=== PATIENT | female | born 1930 | race Caucasian/White ===

== ENCOUNTER 2016-07-10 05:21 | Inpatient (IN) | payer MEDICARE, OTHER ==
--- NOTE | ~2016-07-10 | IDS ---
Interim Discharge Summary [facility] [address] [place]. [address] NAME: BENJA ANDREW : 32 STATUS : ADM IN PAT#: [id number] AGE: 85 ADM/REG DATE : 07/10/16 MR#: [id number] REPORT SERV DATE: 07/15/16 DICTATED BY: SATYA CHOI DATE: 07/15/16 REPORT STATUS : Draft TRANSCRIBED BY: DARREN DATE: 07/15/16 ADMISSION DATE: 07/10/2016 DISCHARGE DATE: DATE OF INTERIM DISCHARGE: 07/15/2016. PROCEDURES DONE: 1. 07/10/2016, CT of the abdomen and pelvis without contrast: There was diffuse acute colitis present and bilateral pleural effusions. Mild cardiomegaly, benign left renal cyst. Prior hysterectomy. 2. 07/10/2016, 2D echo: Normal left ventricular size with jmkvekhd-sk-dsaexn left ventricular systolic dysfunction. There is a large area of hypokinesis involving the nzt-[id number] anterior, anteroseptal, apical, and distal inferior christensen. This pattern of left ventricular systolic dysfunction could be consistent with large anterior VA or perhaps likely stress cardiomyopathy. EF calculated at 35%. Moderate left ventricular diastolic dysfunction. Normal right ventricular size and systolic function. No significant valvular disease. CONSULTATIONS: 1. Marcos Mason M.D. for Cardiology. 2. GI. REASON FOR ADMISSION: Lower GI bleed x2 days. HISTORY OF PRESENT ILLNESS: An 85-year-old white female with past medical history of ST- elevation VA, CHF with AN EF of 25%, COPD, chronic low back pain, hypertension, hypothyroid, GERD, dementia/bipolar, and hypercholesterolemia, presenting with GI bleed x2 days. The patient was admitted for further evaluation of lower GI bleed. CT scan on 07/10/2016 shows the patient having colitis. More importantly, the patient had a recent ST-elevation VA at [place] and subsequently the patient had a left heart cath which showed stress-induced cardiomyopathy with an EF of 15%. At the time, Cardiology at [place] recommended medical management. Nonetheless, the patient was then sent here from rehab secondary to lower GI bleed from colitis. Her anticoagulation of Eliquis had to be stopped. The patient was kept n.p.o. for two days and subsequently the patient's H and H has gradually improved. The patient's current H and H is 11.3. The patient also unfortunately has chronic pain which requires 2 mg of Dilaudid q.6 hours. This medication had to be reduced in order for the patient's mentation to improve. Once the chronic pain medications have been reduced, the patient is able to interact more with both family and nursing staff. The family has been advised that the patient will need to participate with physical therapy in order to determine her rehab capabilities. DIAGNOSIS ON DISCHARGE: 1. Lower gastrointestinal bleed secondary to colitis. Continue the Zosyn for now. WBC trending down. Hopefully, we can get physical therapy with evaluation and treatment with possible case management consult for rehab placement. 2. Colitis. The patient is improving with Zosyn. Continue Zosyn for now pending PT eval Interim Discharge Summary [address] [address] NAME: BENJA ANDREW : 32 STATUS : ADM IN [facility]#: [id number] AGE: 85 ADM/REG DATE : 07/10/16 MR#: [id number] REPORT SERV DATE: 07/15/16 DICTATED BY: SATYA CHOI DATE: 07/15/16 REPORT STATUS : Draft TRANSCRIBED BY: DARREN DATE: 07/15/16 for rehab. 3. Coronary artery disease, status post ST-elevation VA on 07/03/2016. Cardiology was consulted regarding further management of the patient's coronary disease, status post ST-elevation VA. Cardiology recommend continued medical management. 4. CHF with diastolic dysfunction, EF of 35%. The patient had a 2D echo at the time of admission with an EF of 35%. This also reflected the result of the left heart cath that was done in [place], although the ejection fraction at the time of 15%. In the meantime, we will continue the patient's current cardiac medications at this time. 5. Atrial fibrillation. Currently, the patient's Eliquis was on hold due to problem #1. Since the patient is ready for discharge, recommend starting Eliquis. 6. Bipolar/dementia, currently stable. MJ/MADDYL Satya Choi MD / [id number] CC: Satya Choi MD
--- NOTE | ~2016-07-10 | PRECARD ---
[facility] [address] [place]. [address] NAME: ALLY RM : 32 STATUS : ADM IN [facility]#: [id number] AGE: 85 ADM/REG DATE : 07/10/16 MR#: [id number] REPORT SERV DATE: 07/10/16 DICTATED BY: DAVON MASON DATE: 07/10/16 REPORT STATUS : Draft TRANSCRIBED BY: DARREN DATE: 07/10/16 DATE OF ADMISSION: 07/10/2016 HISTORY OF PRESENT ILLNESS: Ms Ally Rm is an 85-year-old woman admitted for rectal bleeding, Cardiology is consulted because of a questionable myocardial infarction recently. Ms Rm is lethargic, unresponsive at this time. Her family reports she was at [facility] two weeks ago. She was admitted to [facility] with a diagnosis of acute myocardial infarction. The three daughters insist she had a heart catheterization that demonstrated normal coronary arteries and normal left ventricular function. They were told her heart was normal, they emphatically report. She was at [facility] for three to four days. Then she went to rehab. She developed hematochezia this morning, and was admitted through the emergency room. At this time, she is comfortable, lethargic. The records indicate she was on Eliquis and had chest discomfort. The family reports to me that she has no chest discomfort. Again, she has had some narcotics, she is comfortable now. The records indicate history of diabetes, hypertension, esophageal reflux, bipolar disorder, and COPD. PAST MEDICAL HISTORY: COPD, diabetes, hypertension, and esophageal reflux. MEDICATIONS: Tylenol, albuterol, Maalox, amiodarone IV, Eliquis previously, aspirin, Depakote, Colace, fluoxetine/Prozac, Flonase, Breo Ellipta, Lasix, Dilaudid, Synthroid, lisinopril, metoprolol, nystatin, Protonix, polyethylene glycol, potassium, Seroquel, and Zocor. FAMILY HISTORY: Noncontributory. REVIEW OF SYSTEMS: Difficult to obtain. PHYSICAL EXAMINATION: VITAL SIGNS: Blood pressure is 160/60, heart rate is about 70, and temperature is 98. GENERAL: Appears chronically ill, somnolent, arousable. In no discomfort. HEENT: No signs of xanthelasma. LUNGS: Clear. CARDIOVASCULAR: 2/6 murmur at the apex. ABDOMEN: No obvious masses or tenderness. EXTREMITIES: Mild edema. [facility] [address] [address] NAME: ALLY RM : 32 STATUS : ADM IN [facility]#: [id number] AGE: 85 ADM/REG DATE : 07/10/16 MR#: [id number] REPORT SERV DATE: 07/10/16 DICTATED BY: DAVON MASON DATE: 07/10/16 REPORT STATUS : Draft TRANSCRIBED BY: DARREN DATE: 07/10/16 DIAGNOSTIC DATA: EKG: Sinus rhythm, anterior infarct, anterior T-wave inversion. LABORATORY DATA: Hematocrit is 37.7, platelet count 370,000. BUN of 17 and creatinine 1.3. ASSESSMENT: Ms Rm is an 85-year-old woman admitted with hematochezia, hematocrit of 37.7. The family reports she was hospitalized at [facility] with diagnosis of myocardial infarction, the family insists, on repeated questioning, that heart catheterization demonstrated "no blockages." We have no old records, we do not have any cardiac biomarkers. She is hemodynamically stable. Her hematocrit is 37.7%. She is a do not resuscitate status now. The family states now they do not want cardiac catheterization to be considered. They do not want stress test, they only want minimal changes in her medical regimen. PLAN: 1. Biomarkers. 2. Obtain records from [facility]. 3. Echocardiogram to assess left ventricular function. BRET/DARREN Davon Mason M.D. / [id number] CC: Satya Solis MD
--- NOTE | ~2016-07-10 | HP ---
History And Physical [address] [address] NAME: BENJA ANDREW : 32 STATUS : ADM IN PAT#: [id number] AGE: 85 ADM/REG DATE : 07/10/16 MR#: [id number] REPORT SERV DATE: 07/10/16 DICTATED BY: SATYA SOLIS DATE: 07/10/16 REPORT STATUS : Draft TRANSCRIBED BY: MODAshley DATE: 07/10/16 DATE OF ADMISSION: 07/10/2016 REASON FOR ADMISSION: Lower GI bleed x2 days. HISTORY OF PRESENT ILLNESS: An 85-year-old white female with past medical history of ST- elevation [place], acute congestive heart failure with an EF of 25%, unknown dysfunction of either systolic or diastolic, COPD, chronic low back pain, hypertension, hypothyroid, GERD, dementia, hypercholesterolemia, presenting with GI bleed, questionable two days. The patient unfortunately cannot provide any decent medical history. History is obtained from [id number] and son at bedside. Apparently, the patient was initially admitted at [facility] and subsequently transferred to [facility]. During the time at [facility], the patient had two large bowel movements per family member, which was bright red blood in nature. Family stated that other than the lower GI bleed, family does not know if the patient has any other symptoms of fevers, chills, chest pain, shortness of breath, cough, or sputum. PAST MEDICAL HISTORY: As above. MEDICATIONS: 1. The patient takes Tylenol 650 q.4 hours p.r.n. 2. Albuterol one puff q.4 hours p.r.n. 3. Maalox 10 mL p.o. q.4 hours p.r.n. 4. Amiodarone 200 mg p.o. b.i.d. 5. Amiodarone 400 mg b.i.d. x7 days, start date 07/05/2016. 6. Eliquis 5 mg p.o. b.i.d. 7. Aspirin 81 mg p.o. daily. 8. Depakote 250 mg p.o. daily. 9. Colace 100 mg p.o. b.i.d. 10.Prozac 10 mg p.o. daily. 11.Flonase one spray each nostril daily. 12.Breo Ellipta 100/25 one puff daily. 13.Lasix 40 mg p.o. daily. 14.Dilaudid 2 mg q.6 hours p.r.n. 15.Levothyroxine 125 mcg p.o. daily. 16.Lisinopril 5 mg p.o. daily. 17.Metoprolol 25 mg p.o. b.i.d. 18.Milk of magnesia 30 mL p.o. daily p.r.n. 19.Nystatin 5 mL p.o. four times a day. 20.Protonix 40 mg p.o. daily. 21.MiraLAX one packet p.o. daily. 22.Polyethylene glycol propylene solution four times a day, ophthalmic both eyes. 23.Potassium 20 mEq daily. 24.Seroquel 300 mg p.o. at bedtime. 25.Zocor 40 mg p.o. at bedtime. 26.Systane oil ophthalmic both eyes at bedtime. History And Physical [address] [address] NAME: BENJA ANDREW : 32 STATUS : ADM IN [facility]#: [id number] AGE: 85 ADM/REG DATE : 07/10/16 MR#: [id number] REPORT SERV DATE: 07/10/16 DICTATED BY: SATYA SOLIS DATE: 07/10/16 REPORT STATUS : Draft TRANSCRIBED BY: DARREN DATE: 07/10/16 Social history, family history, review of system are unobtainable secondary to patient's obtundation. PHYSICAL EXAMINATION: VITAL SIGNS: Temp of 98.1, pulse of 69, respiratory rate of 15, blood pressure is 127/58, O2 saturation 99% on room air. HEAD AND NECK: Normocephalic, atraumatic. CARDIOVASCULAR: S1, S2. Irregularly irregular. LUNGS: Good air entry. No wheeze, rales, or rhonchi. ABDOMEN: Soft. Positive tenderness on all quadrants. Positive bowel sounds. No organomegaly. EXTREMITIES: No clubbing, cyanosis, questionable edema. The patient is wearing compression stockings. NEUROLOGICAL: The patient is awake and arousable. Nonverbal, but no focal deficit appreciated. LABORATORY DATA: Sodium 137, potassium 5.0, chloride 89, bicarb 27, BUN 17, creatinine 1.31, GFR 38, glucose 121, calcium 8.9, total protein 6.7, albumin 2.5, globulin 4.2, total bilirubin 0.4, alkaline phosphatase 47, ALT 14, AST 19. WBC 13.8, hemoglobin 13.1, hematocrit 37.7, platelets 370. ASSESSMENT/PLAN: 1. Lower gastrointestinal bleed. Apparently, this is unwitnessed event with the patient having gastrointestinal bleed with two large bowel movements red in color. We will check H and H q.4 hours since the patient is on Eliquis. More importantly, we are going to continue the aspirin in the meantime with a history of left heart catheterization for ST-elevation myocardial infarction. Family was not very well versed as to what happened during her heart catheterization at [facility]. Questionable if this is medical management. In the meantime, we will hold Eliquis. Check H and H q.4 hours. If hemoglobin is less than 10, we will transfuse. 2. Coronary artery disease, status post ST-elevation myocardial infarction. We will ask for medical records from [facility] to determine exactly what happened during the left heart catheterization. In addition, we will have Cardiology on consult for further evaluation and treatment. 3. History of congestive heart failure, EF of 25%. At this time, we have to be very careful with IV fluids. Questionable if the patient can go into fluid overload with an EF of 25, based on [facility]'s records. Once we determine from [facility] exactly what was the heart cath results, it will be more comforting us to follow aggressive IV hydration. 4. Atrial fibrillation. The patient is currently at atrial fibrillation, heart rate was initially at 67, but increased to greater than 150. We will keep the patient n.p.o. except p.o. medications, but in the meantime, we will start the patient on amiodarone drip. 5. Hypertension. Continue the metoprolol and lisinopril. 6. Chronic obstructive pulmonary disease. Continue the Breo and breathing treatments. 7. Gastroesophageal reflux disease. Continue the PPI. 8. Living will. The patient currently is DNR. Discussed with son and [id number] at [facility] [address] [address] NAME: BENJA ANDREW DOB: [birth year] STATUS : ADM IN PAT#: [id number] AGE: 85 ADM/REG DATE : 07/10/16 MR#: [id number] REPORT SERV DATE: 07/10/16 DICTATED BY: SATYA SOLIS DATE: 07/10/16 REPORT STATUS : Draft TRANSCRIBED BY: MODL DATE: 07/10/16 bedside. The patient does not want any CPR limited intervention and no tube feedings. 9. DVT prophylaxis. We will keep the patient on SCDs. MJ/DARREN Satya Solis MD / [id number] CC: Satya oSlis MD
--- NOTE | ~2016-07-10 | DS ---
Discharge Summary [facility] [address] [address] [place]. [address] NAME: BENJA ANDREW : 32 STATUS : ADM IN PAT#: [id number] AGE: 85 ADM/REG DATE : 07/10/16 MR#: [id number] REPORT SERV DATE: 07/17/16 DICTATED BY: SATYA SOLIS DATE: 07/16/16 REPORT STATUS : Draft TRANSCRIBED BY: MODAshley DATE: 07/16/16 ADMISSION DATE: 07/10/2016 DISCHARGE DATE: 07/16/2016 Please refer to interim discharge summary on 07/15/2016. REASON FOR ADMISSION: Lower GI bleed. HOSPITAL COURSE: An 85-year-old white female with past medical history of ST-elevation [place] that was on 07/03/2016, CHF with an EF of 25%, COPD, chronic low back pain, hypertension, hypothyroid, GERD, dementia/bipolar, hypercholesterolemia, presenting with GI bleed x2 days. The patient was initially doing quite well during her hospital stay. However, the patient developed gradual onset of shortness of breath. Chest x-ray was done, which shows an opacification of the right side of the lung. This was followed by a CT of the chest to rule out a mucus plug versus pleural effusion. Unfortunately, the CT scan came back extensive right-sided pleural effusion with compressive atelectasis/consolidation of the right lung. And there was moderate left-sided left pleural effusion. These findings were discussed with family along with the elevated BNP of 1466. Due to the fact that the patient had a recent OK back on 07/03/2016, the patient is more likely demised secondary to the acute ST- elevation OK back in June. The results were discussed with family, and eventually, the family has opted to make the patient comfort care. Palliative Care Team was consulted and felt the patient was appropriate for their service and subsequently care has been transferred to hospice care. Family has been updated with the POA and the siblings. DISPOSITION: The patient is pain free, no complaints. ACTIVITY: Bedrest. DIET: As tolerated. MEDICATIONS ON DISCHARGE: Management as per [facility]. DIAGNOSES ON DISCHARGE: 1. Lower gastrointestinal bleed secondary to colitis. 2. Colitis. 3. Coronary disease status post ST-elevation myocardial infarction. 4. Congestive heart failure with diastolic dysfunction, questionable EF at 15%. 5. Atrial fibrillation. 6. Bipolar dementia. MJ/DARREN Satya Solis MD Discharge Summary [address] [address] NAME: BENJA ANDREW : 32 STATUS : ADM IN [facility]#: [id number] AGE: 85 ADM/REG DATE : 07/10/16 MR#: [id number] REPORT SERV DATE: 07/17/16 DICTATED BY: SATYA SOLIS DATE: 07/16/16 REPORT STATUS : Draft TRANSCRIBED BY: DARREN DATE: 07/16/16 / [id number] CC: Satya Solis MD
--- NOTE | ~2016-07-10 | DS ---
Discharge Summary [facility] [address] [place]. [address] NAME: BENJA ANDREW : 34 STATUS : ADM IN PAT#: [id number] AGE: 85 ADM/REG DATE : 07/10/16 MR#: [id number] REPORT SERV DATE: 07/20/16 DICTATED BY: JOHNNIE FLORES DATE: 07/19/16 REPORT STATUS : Draft TRANSCRIBED BY: MODL DATE: 07/19/16 ADMISSION DATE: 07/10/2016 DISCHARGE DATE: 07/19/2016 DISCHARGE DIAGNOSES: 1. Lower gastrointestinal bleeding secondary to colitis. 2. Generalized colitis of the entire colon. 3. Coronary artery disease, status post ST-elevation myocardial infarction. 4. Congestive heart failure with diastolic dysfunction with an ejection fraction of 15%. 5. Takotsubo cardiomyopathy. 6. Atrial fibrillation. 7. Dementia with behavior disturbance. CONSULTANTS DURING THIS HOSPITALIZATION: Dr. Jennings of Palliative Care. Dr. Marcos Mason of Cardiology and Gastroenterology as well. INVASIVE PROCEDURES DONE DURING THIS HOSPITALIZATION: None. HISTORY: The patient is an 85-year-old female, presented with medical history of ST- elevation myocardial infarction, EF of 25%, COPD, back pain. She had had GI bleed, so she was admitted. For detailed history and physical exam, please see note dictated by Dr. Loi Solis on 07/10/2016. HOSPITAL COURSE: After being admitted to the hospital, this patient was cared for by Dr. Solis. Please refer to interim summary and discharge summary dictated by Dr. Solis on 07/17/2016 as well as 07/15/2016. I took over this patient's care on 07/17/2016. Apparently, it was decided the patient would go home with hospice, but family decided that they wanted to observe her and that did not think that she would survive the trip. However over the last two days, this patient has remained fairly stable. Hospice has been consulted and the patient will be transferred home with hospice. No other changes have been made. DISCHARGE DISPOSITION: Home with hospice. DISCHARGE ACTIVITY: As tolerated. DISCHARGE DIET: As tolerated. DISCHARGE MEDICATIONS: Deferred to hospice. DISCHARGE FOLLOWUP: Will be by [facility]. More than 30 minutes spent planning this patient's discharge, documenting this discharge and discussing care with the family. Discharge Summary [place] [address] [address] NAME: BENJA ANDREW : 32 STATUS : ADM IN PAT#: [id number] AGE: 85 ADM/REG DATE : 07/10/16 MR#: [id number] REPORT SERV DATE: 07/20/16 DICTATED BY: JOHNNIE FLORES DATE: 07/19/16 REPORT STATUS : Draft TRANSCRIBED BY: DARREN DATE: 07/19/16 SV/DARREN Johnnie Flores M.D. / [id number] CC: Johnnie Flores M.D.
[2016-07-10 05:15] LABS: BASOPHILS 0.1 %; BASOPHILS ABSOLUTE 0.01 10/3/uL (0.0-0.16); EOSINOPHILS 0 %; HEMATOCRIT 37.7 % (36.0-48.0); HEMOGLOBIN 13.1 g/dL (12.0-16.0); IMMATURE GRANULOCYTES 0.5 %; IMMATURE GRANULOCYTES ABSOLUTE 0.07 10/3/uL (0.0-0.11); LYMPHOCYTES 6.4 %; LYMPHOCYTES ABSOLUTE 0.89 10/3/uL (0.67-4.30); MEAN CORPUS HGB CONC 34.7 g/dL (32.0-36.0); MEAN CORPUSCULAR HEMOGLOB 31.3 pg (26.0-34.0); MEAN PLATELET VOLUME 12.3 fL (9.2-13.0); MONOCYTES 5.4 %; MONOCYTES ABSOLUTE 0.74 10/3/uL (0.21-1.20); NEUTROPHILS 87.6 %; RBC DISTRIBUTION WIDTH 14.2 % (12.0-16.0); RED CELL COUNT 4.19 10/6/uL (4.0-5.6); WHITE BLOOD CELLS 13.8 10/3/uL (4.5-10.5)
[2016-07-10 05:16] LABS: ER CBC TAT 0 Hrs 05 MinsNP; MANUAL DIFF NO %; PLATELET COUNT 370 10/3/uL (150-400)
[~2016-07-10 05:21] MED LIST: ADVAIR250 INH; ARICEPT10 PO; CIPRO (10%) PO; DEPAKOTEER PO; DIAMSEQ PO; DIL4TAB PO; DSS PO; FLONASE NAS; INDE80 PO; KDUR20 PO; KLOR-CON M2020 MEQ PO; L40 PO; LEVOTHYROXIN125 MCG PO; LIQUITEARS OP; LORT7 PO; MIRALAXPKT PO; NAMENDA10 MG PO; PROTONIX PO; PROZAC40 MG PO; SEROQUEL300 MG PO; SUCR PO; SYN125 PO; VASOTEC20 MG PO
[2016-07-10 05:22] LABS: INTERNATIONAL NORMAL RATI 1.8 UNITS (-); PARTIAL THROMBO TIME 38.8 SEC (22.5-37.2)
[2016-07-10 05:23] LABS: PROTIME (NOT ORD) 20.7 SEC (12.0-14.5)
[2016-07-10 05:29] LABS: A/G RATIO 0.6 (0.7-1.9); ALBUMIN 2.5 G/DL (3.5-5.0); ALKALINE PHOSPHATASE 47 U/L (45-117); BUN (BLOOD UREA NITROGEN) 17 MG/DL (6-23); CALCIUM, SERUM 8.9 MG/DL (8.5-10.4); CHLORIDE, SERUM 89 MMOL/L (96-112); CO2 (CARBON DIOXIDE) 32 MMOL/L (24-34); CREATININE 1.31 MG/DL (0.55-1.02); GFR AFRICAN AMERICAN 44 ML/MIN (>=60); GFR NON AFRICAN AMERICAN 38 ML/MIN (>=60); GLOBULIN 4.2 G/DL (2.5-4.1); SGPT(ALT) 14 U/L (5-65); SODIUM, SERUM 127 MMOL/L (135-148); TOTAL BILIRUBIN 0.4 MG/DL (0-1.2); TOTAL PROTEIN 6.7 G/DL (6.0-8.5)
[2016-07-10 05:32] LABS: GLUCOSE, SERUM 121 MG/DL (60-99); SGOT(AST) 19 U/L (5-40)
[2016-07-10] MEDS ORDERED: BREO ELLIPTA INH (05:58)
[2016-07-10] MEDS ORDERED: PACERONE400 MG PO (05:59)
[2016-07-10] MEDS ORDERED: ASAB PO (06:00)
[2016-07-10] MEDS ORDERED: ELIQUIS 5 MG TAB5 MG PO (06:00)
[2016-07-10] MEDS ORDERED: DEPAKOT250 PO (06:01)
[2016-07-10] MEDS ORDERED: PROZ10 PO (06:03)
[2016-07-10] MEDS ORDERED: L40 PO (06:05)
[2016-07-10] MEDS ORDERED: FLONASE NAS (06:05)
[2016-07-10] MEDS ORDERED: PRIN5 PO (06:07)
[2016-07-10] MEDS ORDERED: NYS500UDL PO (06:08)
[2016-07-10] MEDS ORDERED: SYSTANE OPH ×2 (06:09→06:16)
[2016-07-10] MEDS ORDERED: MIRALAX POWDER1 PKT PO (06:10)
[2016-07-10] MEDS ORDERED: ZOCOR40 PO (06:18)
[2016-07-10] MEDS ORDERED: T PO (06:20)
[2016-07-10] MEDS ORDERED: MOMUD PO (06:24)
[2016-07-10] MEDS ORDERED: PROAIRRESP INH (06:28)
[2016-07-10] MEDS ORDERED: MAALOX PO (06:29)
[2016-07-10] MEDS ORDERED: LOP25 PO (08:26)
[2016-07-10] MEDS ORDERED: SYSTAN1 OPH (08:33)
[2016-07-10] MEDS ORDERED: CORDARONE PO (08:34)
[2016-07-10 12:46] LABS: HEMATOCRIT 37.1 % (36.0-48.0); HEMOGLOBIN 12.6 g/dL (12.0-16.0)
[2016-07-10 13:02] LABS: CPK 19 U/L (0-200); TROPONIN I 0.02 NG/ML (<0.05)
[2016-07-10 14:17] LABS: PROCALCITONIN <0.05 ng/mL (<0.5)
[2016-07-10 16:59] LABS: HEMATOCRIT 37.4 % (36.0-48.0); HEMOGLOBIN 12.6 g/dL (12.0-16.0)
[2016-07-10 21:06] LABS: HEMATOCRIT 37.9 % (36.0-48.0); HEMOGLOBIN 12.8 g/dL (12.0-16.0)
[2016-07-11 07:32] LABS: HEMATOCRIT 35.4 % (36.0-48.0); HEMOGLOBIN 12.2 g/dL (12.0-16.0)
[2016-07-11 07:56] LABS: BUN (BLOOD UREA NITROGEN) 16 MG/DL (6-23); CALCIUM, SERUM 8.3 MG/DL (8.5-10.4); CHLORIDE, SERUM 91 MMOL/L (96-112); CO2 (CARBON DIOXIDE) 28 MMOL/L (24-34); CREATININE 1.18 MG/DL (0.55-1.02); GFR AFRICAN AMERICAN 49 ML/MIN (>=60); GFR NON AFRICAN AMERICAN 43 ML/MIN (>=60); GLUCOSE, SERUM 104 MG/DL (60-99); POTASSIUM, SERUM 4.3 MMOL/L (3.5-5.3); SODIUM, SERUM 128 MMOL/L (135-148); TROPONIN I 0.03 NG/ML (<0.05)
[2016-07-11 12:12] LABS: HEMATOCRIT 33.9 % (36.0-48.0); HEMOGLOBIN 11.5 g/dL (12.0-16.0)
[2016-07-11 15:37] LABS: HEMATOCRIT 35.3 % (36.0-48.0); HEMOGLOBIN 11.9 g/dL (12.0-16.0)
[2016-07-11 21:01] LABS: HEMATOCRIT 37.7 % (36.0-48.0); HEMOGLOBIN 12.7 g/dL (12.0-16.0)
[2016-07-12 03:35] LABS: BASOPHILS 0.1 %; BASOPHILS ABSOLUTE 0.01 10/3/uL (0.0-0.16); EOSINOPHILS 0 %; IMMATURE GRANULOCYTES 0.3 %; IMMATURE GRANULOCYTES ABSOLUTE 0.04 10/3/uL (0.0-0.11); LYMPHOCYTES ABSOLUTE 1.33 10/3/uL (0.67-4.30); MEAN CORPUSCULAR HEMOGLOB 29.1 pg (26.0-34.0); MEAN CORPUSCULAR VOLUME 88.2 fL (80-100); MONOCYTES 5.7 %; MONOCYTES ABSOLUTE 0.84 10/3/uL (0.21-1.20); NEUTROPHILS 84.9 %; NEUTROPHILS ABSOLUTE 12.57 10/3/uL (2.02-8.40); RBC DISTRIBUTION WIDTH 14.2 % (12.0-16.0); WHITE BLOOD CELLS 14.8 10/3/uL (4.5-10.5)
[2016-07-12 03:44] LABS: HEMOGLOBIN 9.9 g/dL (12.0-16.0); MANUAL DIFF NO %; PLATELET COUNT 219 10/3/uL (150-400)
[2016-07-12 03:55] LABS: ALKALINE PHOSPHATASE 44 U/L (45-117); BUN (BLOOD UREA NITROGEN) 16 MG/DL (6-23); CALCIUM, SERUM 7.8 MG/DL (8.5-10.4); CHLORIDE, SERUM 90 MMOL/L (96-112); CO2 (CARBON DIOXIDE) 31 MMOL/L (24-34); CREATININE 1.26 MG/DL (0.55-1.02); GFR AFRICAN AMERICAN 46 ML/MIN (>=60); GFR NON AFRICAN AMERICAN 39 ML/MIN (>=60); PHOSPHORUS, SERUM 3.9 MG/DL (2.5-4.5); POTASSIUM, SERUM 3.7 MMOL/L (3.5-5.3); SGOT(AST) 10 U/L (5-40); SGPT(ALT) 11 U/L (5-65); SODIUM, SERUM 131 MMOL/L (135-148); TOTAL BILIRUBIN 0.4 MG/DL (0-1.2)
[2016-07-12 04:01] LABS: A/G RATIO 0.6 (0.7-1.9); ALBUMIN 1.9 G/DL (3.5-5.0); GLUCOSE, SERUM 74 MG/DL (60-99); TOTAL PROTEIN 4.9 G/DL (6.0-8.5)
[2016-07-12 10:56] LABS: HEMOGLOBIN 10.9 g/dL (12.0-16.0)
[2016-07-12 15:15] LABS: HEMATOCRIT 33.7 % (36.0-48.0); HEMOGLOBIN 11.5 g/dL (12.0-16.0)
[2016-07-12 21:32] LABS: HEMATOCRIT 33.2 % (36.0-48.0); HEMOGLOBIN 11.3 g/dL (12.0-16.0)
[2016-07-13 05:51] LABS: BASOPHILS 0.2 %; BASOPHILS ABSOLUTE 0.02 10/3/uL (0.0-0.16); EOSINOPHILS 0.1 %; EOSINOPHILS ABSOLUTE 0.01 10/3/uL (0.0-0.53); HEMATOCRIT 32.3 % (36.0-48.0); HEMOGLOBIN 11.1 g/dL (12.0-16.0); IMMATURE GRANULOCYTES 0.3 %; IMMATURE GRANULOCYTES ABSOLUTE 0.03 10/3/uL (0.0-0.11); LYMPHOCYTES 10.5 %; LYMPHOCYTES ABSOLUTE 1.22 10/3/uL (0.67-4.30); MEAN CORPUS HGB CONC 34.4 g/dL (32.0-36.0); MEAN CORPUSCULAR HEMOGLOB 30.8 pg (26.0-34.0); MEAN CORPUSCULAR VOLUME 89.7 fL (80-100); MEAN PLATELET VOLUME 10.7 fL (9.2-13.0); MONOCYTES ABSOLUTE 0.81 10/3/uL (0.21-1.20); NEUTROPHILS 81.9 %; NEUTROPHILS ABSOLUTE 9.55 10/3/uL (2.02-8.40); PLATELET COUNT 206 10/3/uL (150-400); RBC DISTRIBUTION WIDTH 14.1 % (12.0-16.0); WHITE BLOOD CELLS 11.6 10/3/uL (4.5-10.5)
[2016-07-13 05:53] LABS: MANUAL DIFF NO %
[2016-07-13 05:56] LABS: A/G RATIO 0.5 (0.7-1.9); ALBUMIN 1.9 G/DL (3.5-5.0); ALKALINE PHOSPHATASE 43 U/L (45-117); BUN (BLOOD UREA NITROGEN) 13 MG/DL (6-23); CALCIUM, SERUM 8.4 MG/DL (8.5-10.4); CHLORIDE, SERUM 95 MMOL/L (96-112); CO2 (CARBON DIOXIDE) 27 MMOL/L (24-34); CREATININE 1.14 MG/DL (0.55-1.02); GFR AFRICAN AMERICAN 51 ML/MIN (>=60); GFR NON AFRICAN AMERICAN 44 ML/MIN (>=60); GLOBULIN 3.5 G/DL (2.5-4.1); GLUCOSE, SERUM 78 MG/DL (60-99); POTASSIUM, SERUM 3.4 MMOL/L (3.5-5.3); SGOT(AST) 11 U/L (5-40); SGPT(ALT) 10 U/L (5-65); SODIUM, SERUM 135 MMOL/L (135-148); TOTAL BILIRUBIN 0.4 MG/DL (0-1.2); TOTAL PROTEIN 5.4 G/DL (6.0-8.5)
[2016-07-13 05:58] LABS: PHOSPHORUS, SERUM 2.9 MG/DL (2.5-4.5)
[2016-07-13 05:59] LABS: TROPONIN I 0.05 NG/ML (<0.05)
[2016-07-13 10:43] LABS: HEMATOCRIT 35.5 % (36.0-48.0); HEMOGLOBIN 11.9 g/dL (12.0-16.0)
[2016-07-13 17:38] LABS: HEMOGLOBIN 12.6 g/dL (12.0-16.0)
[2016-07-13 21:58] LABS: HEMOGLOBIN 11.5 g/dL (12.0-16.0)
[2016-07-14 06:38] LABS: BUN (BLOOD UREA NITROGEN) 11 MG/DL (6-23); CALCIUM, SERUM 8.5 MG/DL (8.5-10.4); CHLORIDE, SERUM 99 MMOL/L (96-112); CO2 (CARBON DIOXIDE) 33 MMOL/L (24-34); CREATININE 1.16 MG/DL (0.55-1.02); GFR AFRICAN AMERICAN 50 ML/MIN (>=60); GFR NON AFRICAN AMERICAN 44 ML/MIN (>=60); GLUCOSE, SERUM 114 MG/DL (60-99); POTASSIUM, SERUM 4.3 MMOL/L (3.5-5.3); SODIUM, SERUM 138 MMOL/L (135-148)
[2016-07-14 06:50] LABS: BASOPHILS 0.2 %; BASOPHILS ABSOLUTE 0.02 10/3/uL (0.0-0.16); EOSINOPHILS 0 %; HEMATOCRIT 35.4 % (36.0-48.0); HEMOGLOBIN 11.8 g/dL (12.0-16.0); IMMATURE GRANULOCYTES 0.3 %; IMMATURE GRANULOCYTES ABSOLUTE 0.04 10/3/uL (0.0-0.11); LYMPHOCYTES 13.6 %; LYMPHOCYTES ABSOLUTE 1.56 10/3/uL (0.67-4.30); MEAN CORPUS HGB CONC 33.3 g/dL (32.0-36.0); MEAN CORPUSCULAR HEMOGLOB 30.3 pg (26.0-34.0); MEAN CORPUSCULAR VOLUME 90.8 fL (80-100); MEAN PLATELET VOLUME 10.7 fL (9.2-13.0); MONOCYTES 9.5 %; MONOCYTES ABSOLUTE 1.09 10/3/uL (0.21-1.20); NEUTROPHILS 76.4 %; NEUTROPHILS ABSOLUTE 8.74 10/3/uL (2.02-8.40); PLATELET COUNT 237 10/3/uL (150-400); RBC DISTRIBUTION WIDTH 14.4 % (12.0-16.0); WHITE BLOOD CELLS 11.5 10/3/uL (4.5-10.5)
[2016-07-14 06:51] LABS: MANUAL DIFF NO %
[2016-07-14 17:58] LABS: HEMOGLOBIN 12.7 g/dL (12.0-16.0)
[2016-07-14 18:01] LABS: HEMATOCRIT 39.2 % (36.0-48.0)
[2016-07-15 00:23] LABS: HEMOGLOBIN 10.7 g/dL (12.0-16.0)
[2016-07-15 00:24] LABS: HEMATOCRIT 32.5 % (36.0-48.0)
[2016-07-15 07:25] LABS: BASOPHILS 0.2 %; BASOPHILS ABSOLUTE 0.02 10/3/uL (0.0-0.16); EOSINOPHILS 0.1 %; EOSINOPHILS ABSOLUTE 0.01 10/3/uL (0.0-0.53); HEMATOCRIT 34.7 % (36.0-48.0); HEMOGLOBIN 11.3 g/dL (12.0-16.0); IMMATURE GRANULOCYTES 0.2 %; IMMATURE GRANULOCYTES ABSOLUTE 0.02 10/3/uL (0.0-0.11); LYMPHOCYTES 14.6 %; LYMPHOCYTES ABSOLUTE 1.27 10/3/uL (0.67-4.30); MEAN CORPUS HGB CONC 32.6 g/dL (32.0-36.0); MEAN CORPUSCULAR HEMOGLOB 29.8 pg (26.0-34.0); MEAN CORPUSCULAR VOLUME 91.6 fL (80-100); MEAN PLATELET VOLUME 10.6 fL (9.2-13.0); MONOCYTES 11.5 %; NEUTROPHILS 73.4 %; PLATELET COUNT 221 10/3/uL (150-400); RBC DISTRIBUTION WIDTH 14.5 % (12.0-16.0); RED CELL COUNT 3.79 10/6/uL (4.0-5.6); WHITE BLOOD CELLS 8.7 10/3/uL (4.5-10.5)
[2016-07-15 07:29] LABS: MANUAL DIFF NO %
[2016-07-15 07:40] LABS: A/G RATIO 0.7 (0.7-1.9); ALBUMIN 2.1 G/DL (3.5-5.0); ALKALINE PHOSPHATASE 40 U/L (45-117); BUN (BLOOD UREA NITROGEN) 14 MG/DL (6-23); CALCIUM, SERUM 7.9 MG/DL (8.5-10.4); CHLORIDE, SERUM 97 MMOL/L (96-112); CO2 (CARBON DIOXIDE) 34 MMOL/L (24-34); CREATININE 1.22 MG/DL (0.55-1.02); GFR AFRICAN AMERICAN 47 ML/MIN (>=60); GFR NON AFRICAN AMERICAN 41 ML/MIN (>=60); GLOBULIN 3.1 G/DL (2.5-4.1); GLUCOSE, SERUM 95 MG/DL (60-99); PHOSPHORUS, SERUM 2.3 MG/DL (2.5-4.5); SGOT(AST) 14 U/L (5-40); SGPT(ALT) 13 U/L (5-65); SODIUM, SERUM 138 MMOL/L (135-148); TOTAL BILIRUBIN 0.4 MG/DL (0-1.2); TOTAL PROTEIN 5.2 G/DL (6.0-8.5)
[2016-07-15 16:54] LABS: HEMATOCRIT 38.1 % (36.0-48.0); HEMOGLOBIN 12.3 g/dL (12.0-16.0)
[2016-07-15 23:06] LABS: HEMATOCRIT 34.2 % (36.0-48.0); HEMOGLOBIN 11.2 g/dL (12.0-16.0)
[2016-07-16 06:21] LABS: BASOPHILS 0.2 %; BASOPHILS ABSOLUTE 0.01 10/3/uL (0.0-0.16); EOSINOPHILS 0.2 %; EOSINOPHILS ABSOLUTE 0.01 10/3/uL (0.0-0.53); HEMATOCRIT 33.1 % (36.0-48.0); HEMOGLOBIN 10.7 g/dL (12.0-16.0); IMMATURE GRANULOCYTES 0.2 %; IMMATURE GRANULOCYTES ABSOLUTE 0.01 10/3/uL (0.0-0.11); LYMPHOCYTES 17.6 %; LYMPHOCYTES ABSOLUTE 1.09 10/3/uL (0.67-4.30); MEAN CORPUS HGB CONC 32.3 g/dL (32.0-36.0); MEAN CORPUSCULAR HEMOGLOB 29.8 pg (26.0-34.0); MEAN CORPUSCULAR VOLUME 92.2 fL (80-100); MEAN PLATELET VOLUME 10.4 fL (9.2-13.0); MONOCYTES 11.9 %; MONOCYTES ABSOLUTE 0.74 10/3/uL (0.21-1.20); NEUTROPHILS 69.9 %; NEUTROPHILS ABSOLUTE 4.35 10/3/uL (2.02-8.40); PLATELET COUNT 173 10/3/uL (150-400); RBC DISTRIBUTION WIDTH 14.6 % (12.0-16.0); RED CELL COUNT 3.59 10/6/uL (4.0-5.6); WHITE BLOOD CELLS 6.2 10/3/uL (4.5-10.5)
[2016-07-16 06:23] LABS: MANUAL DIFF NO %
[2016-07-16 06:41] LABS: A/G RATIO 0.6 (0.7-1.9); ALBUMIN 1.9 G/DL (3.5-5.0); ALKALINE PHOSPHATASE 34 U/L (45-117); BUN (BLOOD UREA NITROGEN) 15 MG/DL (6-23); CHLORIDE, SERUM 97 MMOL/L (96-112); CO2 (CARBON DIOXIDE) 33 MMOL/L (24-34); CREATININE 1.23 MG/DL (0.55-1.02); GFR AFRICAN AMERICAN 47 ML/MIN (>=60); GFR NON AFRICAN AMERICAN 41 ML/MIN (>=60); GLOBULIN 3.1 G/DL (2.5-4.1); GLUCOSE, SERUM 74 MG/DL (60-99); PHOSPHORUS, SERUM 2.5 MG/DL (2.5-4.5); POTASSIUM, SERUM 3.7 MMOL/L (3.5-5.3); SGOT(AST) 12 U/L (5-40); SGPT(ALT) 12 U/L (5-65); SODIUM, SERUM 139 MMOL/L (135-148); TOTAL BILIRUBIN 0.2 MG/DL (0-1.2)
== END 2016-07-20 11:44 | disposition hospice, home (50) | DRG 391 ==
LOC: ER 05:21 → 6NO 07:37
PROVIDERS: Hospitalist; Internal Medicine Cardiovascular Disease
DX: K52.9 Noninfective gastroenteritis and colitis, unspecified (principal); I21.3 ST elevation (STEMI) myocardial infarction of unspecified site; F03.91 Unspecified dementia, unspecified severity, with behavioral disturbance; I50.32 Chronic diastolic (congestive) heart failure; I51.81 Takotsubo syndrome; I25.2 Old myocardial infarction; Z51.5 Encounter for palliative care; M54.5 Low back pain; I25.10 Atherosclerotic heart disease of native coronary artery without angina pectoris; K21.9 Gastro-esophageal reflux disease without esophagitis; Z66 Do not resuscitate; I10 Essential (primary) hypertension; I48.91 Unspecified atrial fibrillation; E03.9 Hypothyroidism, unspecified; E11.9 Type 2 diabetes mellitus without complications; J44.9 Chronic obstructive pulmonary disease, unspecified; F31.9 Bipolar disorder, unspecified
CPT/HCPCS: 36415; 71010; 71250; 74176; 80048; 80053; 82550; 82553; 82962; 83036; 83605; 83735; 83880; 84100; 84145; 84443; 84484; 85014; 85018; 85025; 85610; 85730; 86850; 86900; 86901; 87040; 93005; 94640; 97110-GO; 97162-GP; 97165-GO; 99285; A9270-GY; C8929; G8978-CM-GP; G8979-CL-GP; G8987-CL-GO; G8988-CK-GO; J0282; J0360; J1170; J2543; P9047; Q9957